=== PATIENT | female | born 1985 | race Caucasian/White ===

== ENCOUNTER 2016-08-07 06:50 | Emergency (ER) | payer OTHER ==
[2016-08-07 07:01] VITALS: BP 142/96; PULSE 96; TEMP 98.1; BMI 22.4
[2016-08-07] MEDS ORDERED: OXYCODONE/APAP 5/325MG COMBO TABLET PO ONE (07:21)
--- NOTE | 2016-08-07 07:39 | PDOC ---
History of Present Illness - General Chief Complaint: Pain Stated Complaint: R 1ST DIGIT TOE PAIN Time Seen by Provider: 08/07/16 07:12 - History of Present Illness Initial Comments: 08/07/16 07:37 80-year-old female with a negative past medical history Her only medication at this time is Lexapro NKDA Patient states that last night she was running down the steps and stubbed her right great toe She states that it was black and blue, and very painful this morning, prompting her to come to the emergency department She took 600 mg of Motrin this morning, and is still having severe pain She denies pain in any other toe, or any other injury Remainder the review of systems is negative Past History - Past Medical History Allergies/Adverse Reactions: Allergies Allergy/AdvReac Type Severity Reaction Status Date / Time No Known Allergies Allergy Verified 08/11/15 12:39 Home Medications: Ambulatory Orders Oxycodone HCl/Acetaminophen [Percocet 5-325 mg Tablet] 1 tab PO Q6H PRN #10 tablet MDD 4 08/07/16 Anemia: No Asthma: No Cancer: No Cardiac Disorders: No CVA: No COPD: No Dementia: No Diabetes: No GI Disorders: No Disorders: No HTN: No Hypercholesterolemia: No Kidney Stones: No Liver Disease: No Psychiatric Problems: Yes (MOOD DISORDER) Suicide Attempt (Hx): Yes (OD on pysch meds ) Seizures: No (but alcohol related blackouts ) Thyroid Disease: No - Surgical History Abdominal Surgery: No Appendectomy: No Cardiac Surgery: No Cholecystectomy: No Lung Surgery: No Neurologic Surgery: No Orthopedic Surgery: No - Immunization History Immunization Up to Date: Yes - Psycho/Social/Smoking Cessation Hx Anxiety: Yes Suicidal Ideation: No Smoking Status: No Smoking History: Unknown if ever smoked Have you smoked in the past 12 months: Yes Number of Cigarettes Smoked Daily: 20 Cigars Per Day: 0 Information on smoking cessation initiated: No 'Breaking Loose' booklet given: 08/07/16 Hx Alcohol Use: No Drug/Substance Use Hx: No Substance Use Type: Alcohol, Opiates Hx Substance Use Treatment: Yes *Physical Exam - Vital Signs Last Vital Signs Temp Pulse Resp BP Pulse Ox 98.1 F 96 H 15 142/96 99 08/07/16 06:58 08/07/16 06:58 08/07/16 06:58 08/07/16 06:58 08/07/16 06:58 - Physical Exam Comments: 08/07/16 07:38 Physical exam Last Vital Signs Temp Pulse Resp BP Pulse Ox 98.1 F 96 H 15 142/96 99 08/07/16 06:58 08/07/16 06:58 08/07/16 06:58 08/07/16 06:58 08/07/16 06:58 Patient is alert and answering questions Head is normocephalic and atraumatic Right lower extremity- There is full range of motion of the right knee and right ankle, and no tenderness in the right foot to the metatarsals The right great toe is ecchymotic and tender There is no tenderness on any other toe The toes are warm, with intact sensation No other injury is seen ED Treatment Course - RADIOLOGY Radiology Studies Ordered: Category Date Time Status TOE(S) RIGHT [RAD] Stat Radiology 08/07/16 07:20 Ordered Medical Decision Making - Medical Decision Making 08/07/16 08:58 Right toe series-negative for fracture Right first and second toes tawana taped for comfort Pain control, rest, orthopedic follow-up if not improving Impression-contusion of right great toe Right first and second toes tawana taped for comfort, patient instructed on how to retape them *DC/Admit/Observation/Transfer Diagnosis at time of Disposition: Contusion of toe of right foot - Discharge Dispostion Disposition: HOME Condition at time of disposition: Good - Prescriptions Prescriptions: Oxycodone HCl/Acetaminophen [Percocet 5-325 mg Tablet] 1 tab PO Q6H PRN #10 tablet MDD 4 PRN Reason: Pain - Referrals Referrals: Bill Bergman MD [Primary Care Provider] - Beltran Shine MD [Staff Physician] - Call tomorrow (orthopedics - call for follow up appointment) - Patient Instructions Additional Instructions: Motrin for pain, Percocet if needed for more severe pain Ice packs off and on for the first 24 hours Elevate and rest You may tawana tape the toes as we discussed for comfort Please follow-up with orthopedics if you're not improving in the next few days - Post Discharge Activity Work/School Note: Back to Work
[2016-08-07] MEDS ORDERED: OXYCODONE/APAP 5/325MG COMBO TABLET ONE (07:48)
== END 2016-08-07 09:26 | disposition home or self-care (01) ==
LOC: FER 06:50
PROC: 2W3UXYZ Immobilization of Right Toe using Other Device (ICD-10-PCS; principal; 2016-08-07)
DX: S90.111A Contusion of right great toe without damage to nail, initial encounter (principal); F39 Unspecified mood [affective] disorder; W22.8XXA Striking against or struck by other objects, initial encounter; Y93.9 Activity, unspecified; Y92.9 Unspecified place or not applicable; Z87.891 Personal history of nicotine dependence
CPT/HCPCS: 73660-TC; 99282-25

== ENCOUNTER 2017-02-28 20:49 | Emergency (ER) | payer OTHER ==
[2017-02-28 20:57] VITALS: BP 145/89; PULSE 100; TEMP 98.5; BMI 21.1
--- NOTE | 2017-02-28 21:01 | PDOC ---
History of Present Illness - General Chief Complaint: Injury Stated Complaint: TRIP/FALL W/ BACK PAIN Time Seen by Provider: 02/28/17 20:58 - History of Present Illness Initial Comments: This otherwise healthy 31-year-old woman presents with an injury to her lower back: Just prior to presentation, patient slipped on icy outdoor steps striking her lower back against the edge of the step. She has been able to ambulate with some pain since the injury. No previous history of lower back injury/ pain. She denies head/neck injury. There is no history of loss of consciousness. She has no headache/neck pain/chest pain. She denies lower extremity pain/ numbness/weakness. Pain is located in the midline lower back at area of impact Past History - Past Medical History Allergies/Adverse Reactions: Allergies Allergy/AdvReac Type Severity Reaction Status Date / Time No Known Allergies Allergy Verified 08/11/15 12:39 Home Medications: Ambulatory Orders Oxycodone HCl/Acetaminophen [Percocet 5-325 mg Tablet] 1 tab PO Q6H PRN #10 tablet MDD 3 tabs 02/28/17 Anemia: No Asthma: No Cancer: No Cardiac Disorders: No CVA: No COPD: No Dementia: No Diabetes: No GI Disorders: No Disorders: No HTN: No Hypercholesterolemia: No Kidney Stones: No Liver Disease: No Psychiatric Problems: Yes (MOOD DISORDER) Seizures: No (but alcohol related blackouts ) Thyroid Disease: No - Surgical History Abdominal Surgery: No Appendectomy: No Cardiac Surgery: No Cholecystectomy: No Lung Surgery: No Neurologic Surgery: No Orthopedic Surgery: No - Immunization History Immunization Up to Date: Yes - Suicide/Smoking/Psychosocial Hx Smoking Status: No Smoking History: Never smoked Have you smoked in the past 12 months: Yes Number of Cigarettes Smoked Daily: 20 Cigars Per Day: 0 'Breaking Loose' booklet given: 08/07/16 Hx Alcohol Use: No Drug/Substance Use Hx: No Substance Use Type: Alcohol, Opiates Hx Substance Use Treatment: Yes Trauma Specific PMHX - Complaint Specific PMHX Arthritis: No Review of Systems - Review of Systems Able to Perform ROS?: Yes Comments:: 12 point review of systems is negative except for what is noted in the history of present illness *Physical Exam - Vital Signs Last Vital Signs Temp Pulse Resp BP Pulse Ox 98.5 F 100 H 16 145/89 100 02/28/17 20:52 02/28/17 20:52 02/28/17 20:52 02/28/17 20:52 02/28/17 20:52 - Physical Exam Comments: GENERAL: HEAD: Normal with no signs of trauma. EYES: PERRLA, EOMI, sclera anicteric, conjunctiva clear. ENT: Ears normal, nares patent, oropharynx clear without exudates. Dry mucous membranes. NECK: Normal range of motion, supple without lymphadenopathy, JVD, or masses. LUNGS: Breath sounds equal, clear to auscultation bilaterally. No wheezes, and no crackles. HEART:Regular rate and rhythm, normal S1 and S2 without murmur, rub or gallop. ABDOMEN:.normal bowel sounds No guarding,tenderness or rebound.No masses No distention. EXTREMITIES: Normal range of motion, no edema. No clubbing or cyanosis. No erythema, or tenderness. NEUROLOGICAL: Cranial nerves II through XII grossly intact. Normal speech. No focal neurological deficits. MUSCULOSKELETAL: Back-moderate ecchymosis, mild edema, moderate tenderness midline L5 Mild edema, mild tenderness midline L4 No paraspinal muscle tenderness or spasm noted No flank tenderness SKIN: Warm, Dry, normal turgor, no rashes or lesions noted. ED Treatment Course - ADDITIONAL ORDERS Additional order review: Laboratory Results 02/28/17 20:50 Urine HCG, Qual Negative Progress Note - Progress Note Progress Note: Lumbar x-ray shows no evidence of fracture or dislocation. Clinical presentation most consistent with contusion of lumbar spine area/lower back. Patient had been given one tablet of Percocet 5/325 prior to x-ray study. Patient will be discharged with instructions to use ibuprofen/naproxen/ acetaminophen as needed for [id number] pain for the next few days Patient asked for stronger medication if she develops severe pain, prescription for Percocet 5/325 (#10) to be used up to 3 times a day as needed for severe pain sent to her pharmacy. Meanwhile, the patient should place ice/cold applications to area of contusion for the next 48 hours. She should avoid strenuous activity for the next 3 days. After that, she can slowly resume exercise/activity as tolerated. Patient has been seen by the [facility] in the past for orthopedic care, she will be referred back to Dr. Solorzano if she has persistent back pain *DC/Admit/Observation/Transfer Diagnosis at time of Disposition: Lumbar contusion Qualifiers: Encounter type: initial encounter Qualified Code(s): S30.0XXA - Contusion of lower back and pelvis, initial encounter - Discharge Dispostion Disposition: HOME Condition at time of disposition: Stable - Prescriptions Prescriptions: Oxycodone HCl/Acetaminophen [Percocet 5-325 mg Tablet] 1 tab PO Q6H PRN #10 tablet MDD 3 tabs PRN Reason: Severe Pain - Referrals Referrals: Bill Bergman MD [Primary Care Provider] - Tesfaye Solorzano MD [Staff Physician] - - Patient Instructions Printed Discharge Instructions: Low Back Pain, DI for Contusion Additional Instructions: Ice to lower back for the next 48 hours, then local warmth as needed Percocet 5/325 up to 3 times a day as needed for severe pain(maintain high fiber diet) Ibuprofen/naproxen/acetaminophen as needed for [id number] pain Avoid strenuous activity for the next 72 hours, then resume as tolerated Follow-up with spinal orthopedic surgeon (Dr. Solorzano) if you have persistent lower back pain Return to ER if you have severe pain and lower back or legs - Post Discharge Activity
[2017-02-28] MEDS ORDERED: ALBUTEROL SO4 2.5/IPRATROPIUM 0.5 INH SOL 3 ML VIAL.NEB. NEB ONE (23:33)
== END 2017-02-28 23:17 | disposition home or self-care (01) ==
LOC: FER 20:49
PROC: 3E0F7GC Introduction of Other Therapeutic Substance into Respiratory Tract, Via Natural or Artificial Opening (ICD-10-PCS; principal; 2017-02-28)
DX: S30.0XXA Contusion of lower back and pelvis, initial encounter (principal); W00.1XXA Fall from stairs and steps due to ice and snow, initial encounter; Y93.89 Activity, other specified; Y92.009 Unspecified place in unspecified non-institutional (private) residence as the place of occurrence of the external cause
CPT/HCPCS: 72100-TC; 84703; 94640; 99282-25

== ENCOUNTER 2018-11-11 09:09 | Emergency (ER) | payer OTHER ==
[2018-11-11 09:17] VITALS: BP 142/100; PULSE 98; TEMP 98.1; BMI 21.1
[2018-11-11] MEDS ORDERED: ACETAMINOPHEN 500 MG TABLET (FP) PO ONE (09:19)
[2018-11-11] MEDS ORDERED: ACETAMINOPHEN 325 MG TABLET (FP) ONE (09:29)
--- NOTE | 2018-11-11 09:31 | PDOC ---
History of Present Illness - General Chief Complaint: Injury Stated Complaint: LEFT 3RD DIGIT-HAND INJURY Time Seen by Provider: 11/11/18 09:11 History Source: Patient Exam Limitations: No Limitations - History of Present Illness Initial Comments: 11/11/18 09:23 Coleen Guevara is an otherwise healthy 33F who presents with a fall onto her L hand and pain onto her left 3rd finger. Patient reports last night she was walking in the dark when she tripped and had a mechanical fall onto her stone patio. Denies hitting her head, prodromal symptoms including dizziness, LOC, SOB, chest pain, weakness. Fell onto her left side, denies any other injuries or pain to her left leg/thigh or chest. Took a 800mg ibuprofen for pain, but is reporting 9/10 pain from the finger. No other PMH, no allergies. Past History - Past Medical History Allergies/Adverse Reactions: Allergies Allergy/AdvReac Type Severity Reaction Status Date / Time No Known Allergies Allergy Verified 11/11/18 09:11 Anemia: No Asthma: No Cancer: No Cardiac Disorders: No CVA: No COPD: No Dementia: No Diabetes: No GI Disorders: No Disorders: No HTN: No Hypercholesterolemia: No Kidney Stones: No Liver Disease: No Psychiatric Problems: Yes (MOOD DISORDER) Seizures: No (but alcohol related blackouts ) Thyroid Disease: No - Surgical History Abdominal Surgery: No Appendectomy: No Cardiac Surgery: No Cholecystectomy: No Lung Surgery: No Neurologic Surgery: No Orthopedic Surgery: No - Immunization History Immunization Up to Date: Yes - Suicide/Smoking/Psychosocial Hx Smoking Status: No Smoking History: Never smoked Have you smoked in the past 12 months: No Number of Cigarettes Smoked Daily: 20 Cigars Per Day: 0 Information on smoking cessation initiated: No 'Breaking Loose' booklet given: 08/07/16 Hx Alcohol Use: (social) Drug/Substance Use Hx: No Substance Use Type: Alcohol, Opiates Hx Substance Use Treatment: Yes Review of Systems - Review of Systems Able to Perform ROS?: Yes Is the patient limited [place] proficient: No Constitutional: No: Symptoms Reported, Fever HEENTM: No: Symptoms Reported Respiratory: No: Symptoms reported Cardiac (ROS): No: Symptoms Reported ABD/GI: No: Symptoms Reported : No: Symptoms Reported Musculoskeletal: No: Symptoms Reported Integumentary: Yes: Bruising (bruising to L middle finger with pain) Neurological: No: Symptoms reported Endocrine: No: Symptoms Reported Hematologic/Lymphatic: No: Symptoms Reported All Other Systems: Reviewed and Negative *Physical Exam - Vital Signs Last Vital Signs Temp Pulse Resp BP Pulse Ox 98.1 F 98 H 18 142/100 100 11/11/18 09:10 11/11/18 09:10 11/11/18 09:10 11/11/18 09:10 11/11/18 09:10 - Physical Exam General Appearance: Yes: Nourished, Appropriately Dressed. No: Apparent Distress HEENT: positive: EOMI, Normal Voice, Hearing Grossly Normal. negative: Scleral Icterus (R), Scleral Icterus (L) Neck: positive: Supple. negative: Tender, Lymphadenopathy (R), Lymphadenopathy (L) Respiratory/Chest: positive: Lungs Clear, Normal Breath Sounds. negative: Respiratory Distress, Crackles, Rales, Rhonchi Cardiovascular: positive: Regular Rhythm, Regular Rate. negative: Edema Gastrointestinal/Abdominal: positive: Normal Bowel Sounds, Flat, Soft Musculoskeletal: positive: Normal Inspection. negative: CVA Tenderness Extremity: positive: Other (L hand: full ROM at the wrist and MCP joints and above of fingers 1, 2, 4, and 5. Radial pulse present, cap refill <3sec. L 3rd finger has blue discoloration to fingertip and nail with 2.5cm superficial laceration of finger pad, not bleeding, full ROM of MCP joint, pain with passive flexion of PIP and DIP joints, tender to palpation at the distal phalanges. Full active flexion and extension noted to L 3rd finger, somewhat limited by pain.) Integumentary: positive: Normal Color, Dry, Warm Neurologic: positive: Fully Oriented, Alert, Normal Mood/Affect, Normal Response ED Treatment Course - RADIOLOGY Radiology Studies Ordered: Category Date Time Status HAND- LEFT [RAD] Stat Radiology 11/11/18 09:18 Ordered Medical Decision Making - Medical Decision Making 11/11/18 09:23 Coleen Guevara is an otherwise healthy 33F who presents with a fall onto her L hand and pain onto her left 3rd finger. Given presentation of pain in finger with tenderness and bruising at fingertip, concern for phalangeal fx vs. avulsion fracture vs. flexor tendon injury. Tendon injury less likely since finger exhibits full active flexion and extension. Giving PO Tylenol for pain to start with some ice. Getting XR L hand to assess for fx. Soaking finger in betadine to assess for depth of laceration. 11/11/18 10:15 XR hand shows no avulsions, may be small fx at tip of L 3rd finger. Will apply steri strips to finger and give finger splint. Will send home with a few percocets and a referral to hand surgeon if symptoms do not improve. *DC/Admit/Observation/Transfer Diagnosis at time of Disposition: Pain of left middle finger - Discharge Dispostion Disposition: HOME Condition at time of disposition: Stable Decision to Admit order: No - Referrals Referrals: Bill Bergman MD [Primary Care Provider] - Reynold Burnett MD [Staff Physician] - - Patient Instructions Additional Instructions: Today you were evaluated for an injury to your left middle finger. We have examined your hand and fingers, and because you can move your finger with some pain, you likely do not have an injury to the tendon of your finger that would need an immediate surgery. We obtained an x-ray of your finger that shows that the tip of your finger may be broken, but this will heal well on its own. When you get home, continue to take ibuprofen every 6 hours for pain, keep your finger elevated to let the swelling come down with gravity, and use lots of ice pack to help reduce swelling. Most of your pain is caused by the swelling in your fingertip; doing these things will help the swelling come down and ease your pain over the next 4-5 days. We have also given you a finger splint; please use this as much as possible to prevent your finger from getting stuck. If the pain gets too intense, we have provided you with 2 Percocets for brief pain relief; please do not drive after taking them, and be mindful that they may cause constipation. The oter measures listed above will be much better for handling your pain and swelling. For the cut, please keep it clean with soap and water. Please follow-up wit your primary doctor in the next 3 days for further care. We have included a referral to see Dr. Burnett, a hand surgeon, if your finger does not improve over the next week. If you become unable to use your hand, have worsening pain that is not controlled, become unable to feel or move your finger, see any further discoloration of your finger, see any signs of infection, including fever, chills, and pus from your wound, or any new or concerning symptoms, please return to the closest emergency room. - Post Discharge Activity
--- NOTE | 2018-11-11 10:26 | PDOC ---
Attending Attestation - Resident Resident Name: Jules Melo - ED Attending Attestation I have performed the following: I have examined & evaluated the patient, The case was reviewed & discussed with the resident, I agree w/resident's findings & plan, Exceptions are as noted - HPI HPI: 11/11/18 10:17 Reviewed Residents HPI - Physicial Exam PE: 11/11/18 10:19 Vitals: Triage Vital signs reviewed General Appearance: no acute distress, well nourished well developed, Head: Atraumatic, Extremities: Swelling to pad of distal right middle finger. Small superficial laceration does not require suturing. Full range of motion slightly limited by pain but FDP FDS and extensor mechanism grossly intact. Skin: Warm and dry, no rashes or lesions, no rash, no petechiae Neuro: Strength intact to all extremities, Sensation intact to all extremities Psych: normal mood, normal affect - Medical Decision Making 11/11/18 18:45 Crush injury to finger possible tuft fracture but very subtle small laceration that does not require suturing. Bacitracin placed patient with full range of motion to finger FDS FDP intact extensor mechanism intact Patient provided with hand follow-up and strict return instructions Findings, the need for follow-up and strict return instructions discussed with patient.
== END 2018-11-11 10:37 | disposition home or self-care (01) ==
LOC: FER 09:09
DX: M79.645 Pain in left finger(s) (principal); Z87.891 Personal history of nicotine dependence; F99 Mental disorder, not otherwise specified; W18.39XA Other fall on same level, initial encounter; Y93.89 Activity, other specified; Y92.007 Garden or yard of unspecified non-institutional (private) residence as the place of occurrence of the external cause
CPT/HCPCS: 73130-TC-LT-FY; 99282-25

== ENCOUNTER 2020-10-04 15:50 | Emergency (ER) | payer OTHER ==
[2020-10-04] MEDS ORDERED: ACETAMINOPHEN 325 MG TABLET (FP) PO ONE (16:03)
[2020-10-04 16:09] VITALS: BMI 19.3
[2020-10-04] MEDS ORDERED: ACETAMINOPHEN 325 MG TABLET (FP) ONE (16:30)
[2020-10-04 17:09] LABS: ALBUMIN 4.3 g/dl (3.4-5.0); BILIRUBIN,TOTAL 0.7 mg/dl (0.2-1); CALCIUM 9.3 mg/dl (8.5-10); CREATININE 0.6 mg/dl (0.55-1.3); TOT PROT 6.9 g/dl (6.4-8.2)
[2020-10-04 17:10] LABS: INR 0.93 (0.82-1.09); PROTHROMBIN TIME (PATIENT) 10.5 SEC (10.2-13.0)
[2020-10-04 17:13] LABS: EOS % 0.7 % (0-4.5); WHITE BLOOD COUNT 6.5 K/mm3 (4.0-10.8)
[2020-10-04 17:17] LABS: BASO % 1.1 % (0-2.0); HEMATOCRIT 37.5 % (32.4-45.2); HEMOGLOBIN 11.9 GM/dl (10.7-15.3); LYMPH % 27.2 % (8-40); MCH 20.2 pg (25.7-33.7); MCHC 31.7 g/dl (32.0-36.0); MEAN CELL VOLUME 63.9 fl (80-96); MEAN PLT VOLUME 9.5 fl (7.5-11.1); PLATELET COUNT 215 10^3/uL (134-434); RBC 5.88 M/mm3 (3.60-5.2); RDW 14.4 % (11.6-15.6)
[2020-10-04 17:26] LABS: ADD RBC MORPHOLOGY YES
[2020-10-04] MEDS ORDERED: IBUPROFEN 600 MG TABLET (FP) PO ONE ×2 (17:47→17:49)
[2020-10-04] MEDS ORDERED: oxyCODONE HCL 5 MG TABLET PO ONE (18:07)
[2020-10-04] MEDS ORDERED: oxyCODONE HCL 5 MG TABLET ONE (18:11)
[2020-10-04 18:20] VITALS: BP 148/100; PULSE 68; TEMP 99.2
[2020-10-04 18:35] LABS: ANISOCYTOSIS 2+
[2020-10-04 18:36] LABS: PLATELET ESTIMATE ADEQUATE; TARGET CELLS 1+
== END 2020-10-04 18:51 | disposition home or self-care (01) ==
LOC: FER 15:50
DX: R10.32 Left lower quadrant pain (principal)
CPT/HCPCS: 36415; 76830-TC; 80053; 81003; 81025; 84443; 85025; 85610; 85730; 86850; 86900; 86901; 87086; 99284-25

== ENCOUNTER 2020-10-05 12:37 | Emergency (ER) | payer OTHER ==
[2020-10-05 13:01] VITALS: TEMP 99.3; BMI 18.9
[2020-10-05] MEDS ORDERED: KETOROLAC TROMETHAMINE 60 MG/2 ML VIAL IM ONE (13:10)
[2020-10-05] MEDS ORDERED: KETOROLAC TROMETHAMINE 60 MG/2 ML VIAL ONE (13:17)
[2020-10-05 13:53] VITALS: BP 139/93; PULSE 71
== END 2020-10-05 14:09 | disposition home or self-care (01) ==
LOC: FER 12:37
PROC: 3E0233Z Introduction of Anti-inflammatory into Muscle, Percutaneous Approach (ICD-10-PCS; principal; 2020-10-05)
DX: R10.32 Left lower quadrant pain (principal)
CPT/HCPCS: 81025; 84703; 99284-25

== ENCOUNTER 2021-08-14 12:17 | Emergency (ER) | payer OTHER ==
[2021-08-14 12:35] VITALS: BP 118/85; PULSE 93; TEMP 98.4; BMI 20.2
[2021-08-14] MEDS ORDERED: METHOCARBAMOL 500 MG TABLET PO ONE (12:44)
[2021-08-14] MEDS ORDERED: METHOCARBAMOL 500 MG TABLET ONE (13:00)
[2021-08-14 14:01] LABS: HCG,QUALITATIVE URINE Negative
[2021-08-14 14:06] LABS: ALBUMIN 4.3 g/dl (3.4-5.0); BILIRUBIN,TOTAL 0.7 mg/dl (0.2-1); CALCIUM 9.6 mg/dl (8.5-10); CREATININE 0.7 mg/dl (0.55-1.3)
== END 2021-08-14 14:40 | disposition home or self-care (01) ==
LOC: FER 12:17
DX: R20.2 Paresthesia of skin (principal)
CPT/HCPCS: 36415; 80053; 81003; 84703; 99283-25

== ENCOUNTER 2022-09-11 08:45 | Emergency (ER) | payer OTHER ==
[2022-09-11 08:51] VITALS: BP 163/81; PULSE 112; RESP 18; TEMP 98.7; BMI 19.8
== END 2022-09-11 11:15 | disposition home or self-care (01) ==
LOC: FER 08:45
DX: R10.2 Pelvic and perineal pain (principal)
CPT/HCPCS: 76830-TC; 81003; 84703; 87086; 99284-25